=== PATIENT | male | born 1980 | race Caucasian/White ===

== ENCOUNTER 2018-07-19 07:55 | Emergency (ER) | payer BC ==
[2018-07-19] MEDS ORDERED: NORMAL SALINE 1000 ML 1,000 ML IV ONE (09:12)
[2018-07-19 09:58] LABS: ABSOLUTE EOSINOPHILS # (AUTO) 0.1 10^3/uL (0.0-0.6); ABSOLUTE LYMPHOCYTES (AUTO) 0.9 10^3/uL (0.5-4.7); ABSOLUTE MONOCYTES (AUTO) 0.5 10^3/uL (0.1-1.4); ABSOLUTE NEUT (AUTO) 4.9 10^3/uL (1.7-8.2); BASOPHILS % (AUTO) 0.6 % (0-2); EOSINOPHILS % (AUTO) 0.9 % (0-6); HEMATOCRIT 37.8 % (37.9-51.0); HEMOGLOBIN 12.1 g/dL (13.5-17.0); LYMPHOCYTES % (AUTO) 14.1 % (13-45); MEAN CORPUSCULAR HEMOGLOBIN 20.4 pg (27.0-33.4); MONOCYTES % (AUTO) 7.5 % (3-13); PLATELET COUNT 276 10^3/uL (150-450); RED BLOOD COUNT 5.91 10^6/uL (4.35-5.55); RED CELL DISTRIBUTION WIDTH 16.6 % (11.5-14.0); SEGMENTED NEUTROPHILS % (AUTO) 76.9 % (42-78); TOTAL CELLS COUNTED % (AUTO) 100 %; WHITE BLOOD COUNT 6.4 10^3/uL (4.0-10.5)
[2018-07-19 10:20] LABS: ALANINE AMINOTRANSFERASE 68 U/L (21-72); ALBUMIN 4.4 g/dL (3.5-5.0); ALKALINE PHOSPHATASE 67 U/L (38-126); ANION GAP 10 (5-19); ASPARTATE AMINO TRANSFERASE 32 U/L (17-59); BILIRUBIN,DIRECT 0.2 mg/dL (0.0-0.4); BILIRUBIN,TOTAL 0.7 mg/dL (0.2-1.3); BLOOD UREA NITROGEN 16 mg/dL (7-20); CALCIUM 9.9 mg/dL (8.4-10.2); CARBON DIOXIDE 27 mmol/L (22-30); CHLORIDE 105 mmol/L (98-107); GLUCOSE 88 mg/dL (75-110); POTASSIUM 4.1 mmol/L (3.6-5.0); SODIUM 142.4 mmol/L (137-145); TOTAL PROTEIN 7.1 g/dL (6.3-8.2)
[2018-07-19 10:48] LABS: ANISOCYTOSIS 1+; TARGET CELLS SLIGHT
[2018-07-19 10:49] LABS: MEAN CORPUSCULAR VOLUME 64 fl (80-97); PLATELET COMMENT ADEQUATE
--- NOTE | 2018-07-19 12:12 | RADIOLOGY REPORT (SQ) ---
EXAM DESCRIPTION: CT ABD/PELVIS WITH IV ORAL COMPLETED DATE/TIME: 07/19/2018 11:58 am REASON FOR STUDY: Discolored umbical hernia/ reduced COMPARISON: None. TECHNIQUE: CT scan of the abdomen and pelvis performed using helical scanning technique with dynamic intravenous contrast injection. Oral contrast. Images reviewed with lung, soft tissue, and bone win dows. Reconstructed coronal and sagittal MPR images reviewed. Delayed images for evaluation of the ur inary system also acquired. All images stored on PACS. All CT scanners at this facility use dose modulation, iterative reconstruction, and/or weight based d osing when appropriate to reduce radiation dose to as low as reasonably achievable (ALARA). [facility]: Dose Right [facility]: CareDose [facility]: Dose Right [facility]: Teradose 4D [facility]: Existence Before Essence CONTRAST TYPE AND DOSE: contrast/concentration: Isovue 350.00 mg/ml; Total Contrast Delivered: 99.0 ml; Total Saline Delivered: 70.0 ml RENAL FUNCTION: BUN 16 creatinine 0.93 RADIATION DOSE: CT Rad equipment meets quality standard of care and radiation dose reduction techniq ues were employed. CTDIvol: 18.2 - 20.0 mGy. DLP: 2139 mGy-cm.. LIMITATIONS: None. FINDINGS: LOWER CHEST: No significant findings. No nodules or infiltrates. LIVER: Normal size. No masses. No dilated ducts. SPLEEN: Normal size. No focal lesions. PANCREAS: No masses. No significant calcifications. No adjacent inflammation or peripancreatic fluid collections. Pancreatic duct not dilated. GALLBLADDER: No identified stones by CT criteria. No inflammatory changes to suggest cholecystitis. ADRENAL GLANDS: No significant masses or asymmetry. RIGHT KIDNEY AND URETER: No solid masses. No significant calcifications. No hydronephrosis or hyd roureter. LEFT KIDNEY AND URETER: No solid masses. No significant calcifications. No hydronephrosis or hydr oureter. AORTA AND VESSELS: No aneurysm. No dissection. Renal arteries, SMA, celiac without stenosis. RETROPERITONEUM: No retroperitoneal adenopathy, hemorrhage or masses. BOWEL AND PERITONEAL CAVITY: No masses or inflammatory changes. No free fluid or peritoneal masses. APPENDIX: Normal. PELVIS: No mass. No free fluid. Normal bladder. ABDOMINAL WALL: A small umbilical hernia contains only fat. BONES: No significant or acute findings. OTHER: No other significant finding. IMPRESSION: Small umbilical hernia contains only fat. No acute finding in the abdomen or pelvis. TECHNICAL DOCUMENTATION: JOB ID: [id number] Quality ID # [id number]: Final reports with documentation of one or more dose reduction techniques (e.g., Au tomated exposure control, adjustment of the mA and/or kV according to patient size, use of iterative reconstruction technique) 2010 [employer]- All Rights Reserved Reading location - IP/workstation name: [email or web address]
--- NOTE | 2018-07-19 12:43 | ER Document Report ---
ED GI/ - General Chief Complaint: Abdominal Pain Stated Complaint: ABDOMINAL PAIN Time Seen by Provider: 07/19/18 08:27 Primary Care Provider: BENITO ORTEGA PA [Primary Care Provider] - Follow up as needed SILVIA LAGUNAS MD [ACTIVE STAFF] - Follow up as needed Mode of Arrival: Ambulatory Information source: Patient Notes: patient is a 37-year-old male comes emergency room complaining of umbilical hernia discomfort. Patient states is been there for the last several months and he has been attempting to get into see a surgeon but has not gotten or found the time to do so yet. He states he woke up this morning and it felt a little more than unusual to him so he decided to come into the emergency room to have it checked out. He denies any nausea vomiting or diarrhea. He states that the pain is just a little uncomfortable more so than usual. He also states that it normally goes back and on his own but today does not seem like it is going all the way in. Patient denies any nausea vomiting or diarrhea. He denies any fevers. TRAVEL OUTSIDE OF THE [place] IN LAST 30 DAYS: No - HPI Patient complains to provider of: Abdominal pain Onset: This morning Timing/Duration: Gradual Quality of pain: Achy Severity at maximum: Moderate Severity in ED: Mild Pain Level: 2 Location: Other - Umbilical Sexual history: Inactive Associated symptoms: None Exacerbated by: Sitting, Standing Relieved by: Supine Similar symptoms previously: Yes Recently seen / treated by doctor: No - Related Data Allergies/Adverse Reactions: No Known Allergies Allergy (Verified 07/19/18 07:56) Past Medical History - General Information source: Patient - Social History Smoking Status: Never Smoker Cigarette use (# per day): No Chew tobacco use (# tins/day): No Smoking Education Provided: No Frequency of alcohol use: None Family History: Reviewed & Not Pertinent Patient has suicidal ideation: No Patient has homicidal ideation: No - Past Medical History Cardiac Medical History: Reports: Hx Hypertension Renal/ Medical History: Denies: Hx Peritoneal Dialysis Review of Systems - Review of Systems Constitutional: No symptoms reported EENT: No symptoms reported Cardiovascular: No symptoms reported Respiratory: No symptoms reported Gastrointestinal: See HPI, Other - Umbilical discomfort Genitourinary: No symptoms reported Male Genitourinary: No symptoms reported Musculoskeletal: No symptoms reported Skin: No symptoms reported Hematologic/Lymphatic: No symptoms reported Neurological/Psychological: No symptoms reported -: Yes All other systems reviewed and negative Physical Exam - Vital signs Vitals: Temp Pulse Resp BP Pulse Ox 98.1 F 95 18 160/78 H 99 07/19/18 07:59 07/19/18 07:59 07/19/18 07:59 07/19/18 07:59 07/19/18 07:59 Interpretation: Hypertensive - Notes Notes: PHYSICAL EXAMINATION: GENERAL: Patient is a well-nourished well-developed obese 37-year-old male who is in no apparent distress on physical exam today. HEAD: Atraumatic, normocephalic. EYES: Pupils equal round and reactive to light, extraocular movements intact, sclera anicteric, conjunctiva are normal. ENT: Nares patent, oropharynx clear without exudates. Moist mucous membranes. NECK: Normal range of motion, supple without lymphadenopathy LUNGS: Breath sounds clear to auscultation bilaterally and equal. No wheezes rales or rhonchi. HEART: Regular rate and rhythm without murmurs ABDOMEN: Soft, nontender, nondistended abdomen. No guarding, no rebound. Examination patient's area of concern is his umbilicus. Visualization of the umbilicus shows it to be a slightly discolored apparent umbilical hernia. Patient is feeling circumferentially around the umbilicus. He has bowel sounds in the abdominal area in all 4 quads. Discoloration is just a merlin or dusky type of a presentation bowel sounds are heard over the umbilicus. Palpation of the area shows her to be a small defect with pressure applied knees bent reduces itself. Color turns back to his normal with it being reduced. Some mild tenderness while attempted to reduce it. Musculoskeletal: Normal range of motion, no pitting or edema. No cyanosis. NEUROLOGICAL: Normal speech, normal gait. Normal sensory, motor exams PSYCH: Normal mood, normal affect. SKIN: See abdomen above for specific area other than that no abnormal lesions Course - Re-evaluation Re-evalutation: 07/20/18 09:27 Given that I could reduce the herniation normal color returned I did have also come in and examined patient. He agreed with assessment that it had been reduced however requested that we go ahead and do a work-up to make sure there was no necrosis in the area or inflammatory bowel presentation. We did do a CT that showed just a fat-containing hernia and with total reduction normal labs patient can be discharged home to follow-up with general surgery for hernia repair. Patient's been given specific instructions that if it should come out and not go back he needs to come back to the emergency room. He originally stated he wanted to go to a surgeon in [place] however since being here he asked for a list of surgeons locally. He is discharged home and will return if he has any concerns or problems. - Vital Signs Vital signs: Temp Pulse Resp BP Pulse Ox 98 F 69 16 119/58 L 98 07/19/18 13:35 07/19/18 13:35 07/19/18 13:35 07/19/18 13:35 07/19/18 13:35 - Laboratory Result Diagrams: 07/19/18 09:43 07/19/18 09:43 Laboratory results interpreted by me: 07/19/18 09:43 RBC 5.91 H Hgb 12.1 L Hct 37.8 L MCV 64 L MCH 20.4 L RDW 16.6 H Discharge - Discharge Clinical Impression: Umbilical hernia without obstruction or gangrene Condition: Stable Disposition: HOME, SELF-CARE Instructions: Abdominal Pain ([facility]), Umbilical Hernia ([facility]) Additional Instructions: Home and rest today. Monitor your hernia as we discussed if it starts to pop out lay down pushed back in. Should it come out and stay out you need to return to ER wants to get it rechecked. If you notice any substantial discoloration y ou also need to return to have it checked. I gave you the name of the surgeon in the area that she requested he may contact his office to see if he can accommodate you. Forms: Elevated Blood Pressure, Return to Work Referrals: BENITO ORTEGA PA [Primary Care Provider] - Follow up as needed SILVIA LAGUNAS MD [ACTIVE STAFF] - Follow up as needed
[2018-07-19 13:36] VITALS: BP 119/58
[2018-07-20 11:39] LABS: PATH REVIEW PATHOLOGIST REVIEWED
== END 2018-07-19 13:36 | disposition home or self-care (01) ==
LOC: ER 07:55
DX: K42.9 Umbilical hernia without obstruction or gangrene (principal); R10.33 Periumbilical pain; I10 Essential (primary) hypertension
CPT/HCPCS: 99284; 36415; 85025; 80053; 74177; J7030

== ENCOUNTER → 2018-07-30 | Outpatient (CLI) | payer BC ==
[2018-07-30 12:01] LABS: HEMATOCRIT 42.1 % (37.9-51.0); HEMOGLOBIN 13.6 g/dL (13.5-17.0); MEAN CORPUSCULAR HEMOGLOBIN 20.4 pg (27.0-33.4); MEAN CORPUSCULAR HGB CONC 32.3 g/dL (32.0-36.0); PLATELET COUNT 320 10^3/uL (150-450); RED BLOOD COUNT 6.66 10^6/uL (4.35-5.55); RED CELL DISTRIBUTION WIDTH 16.5 % (11.5-14.0); WHITE BLOOD COUNT 8.8 10^3/uL (4.0-10.5)
[2018-07-30 12:27] LABS: MEAN CORPUSCULAR VOLUME 63 fl (80-97)
[2018-07-30 12:34] LABS: ANION GAP 13 (5-19); BLOOD UREA NITROGEN 18 mg/dL (7-20); CALCIUM 10.2 mg/dL (8.4-10.2); CARBON DIOXIDE 28 mmol/L (22-30); CHLORIDE 101 mmol/L (98-107); GLUCOSE 86 mg/dL (75-110); POTASSIUM 4.1 mmol/L (3.6-5.0); SODIUM 142.1 mmol/L (137-145)
[2018-07-31 15:57] LABS: PATH REVIEW PATHOLOGIST REVIEWED
== END ==
LOC: OD 10:48
PROVIDERS: ATTEND Surgery
DX: Z01.818 Encounter for other preprocedural examination (principal); K42.9 Umbilical hernia without obstruction or gangrene; I10 Essential (primary) hypertension; J45.909 Unspecified asthma, uncomplicated
CPT/HCPCS: 36415; 80048; 85027

== ENCOUNTER 2018-08-24 05:22 | Day surgery (SDC) | payer BC ==
[2018-08-20 10:31] LABS: HEMATOCRIT 38.9 % (37.9-51.0); HEMOGLOBIN 12.5 g/dL (13.5-17.0); MEAN CORPUSCULAR HEMOGLOBIN 20.2 pg (27.0-33.4); MEAN CORPUSCULAR VOLUME 63 fl (80-97); PLATELET COUNT 305 10^3/uL (150-450); RED BLOOD COUNT 6.17 10^6/uL (4.35-5.55); RED CELL DISTRIBUTION WIDTH 15.6 % (11.5-14.0); WHITE BLOOD COUNT 11.7 10^3/uL (4.0-10.5)
[2018-08-20 11:01] LABS: ANION GAP 9 (5-19); BLOOD UREA NITROGEN 15 mg/dL (7-20); CALCIUM 9.5 mg/dL (8.4-10.2); CARBON DIOXIDE 26 mmol/L (22-30); CHLORIDE 104 mmol/L (98-107); GLUCOSE 75 mg/dL (75-110); POTASSIUM 4.6 mmol/L (3.6-5.0); SODIUM 139.1 mmol/L (137-145)
--- NOTE | 2018-08-20 11:23 | RADIOLOGY REPORT (SQ) ---
EXAM DESCRIPTION: CHEST PA/LATERAL COMPLETED DATE/TIME: 08/20/2018 10:03 am REASON FOR STUDY: PRE-OP COMPARISON: None. EXAM PARAMETERS: NUMBER OF VIEWS: two views TECHNIQUE: Digital Frontal and Lateral radiographic views of the chest acquired. RADIATION DOSE: NA LIMITATIONS: none FINDINGS: LUNGS AND PLEURA: No opacities, masses or pneumothorax. No pleural effusion. MEDIASTINUM AND HILAR STRUCTURES: No masses or contour abnormalities. HEART AND VASCULAR STRUCTURES: Heart normal size. No evidence for failure. BONES: No acute findings. HARDWARE: None in the chest. OTHER: No other significant finding. IMPRESSION: NO SIGNIFICANT RADIOGRAPHIC FINDING IN THE CHEST. TECHNICAL DOCUMENTATION: JOB ID: [id number] [email or web address]- All Rights Reserved Reading location - IP/workstation name: [email or web address]
--- NOTE | 2018-08-21 00:35 | EKG REPORT ---
SEVERITY:- NORMAL ECG - SINUS RHYTHM : Confirmed by: Claudette Torres 21-Aug-2018 00:34:06
[~2018-08-24 05:22] MED LIST: ACETAMINOPHEN 325 MG TABLET ONE; ACETAMINOPHEN 325 MG TABLET PO PRN; CEFAZOLIN 2 GM/D5W RTU 2 GM/50 ML RTUPB IV ONE; CEFAZOLIN 2 GM/D5W RTU 2 GM/50 ML RTUPB IV PRN; IBUPROFEN 800 MG in NORMAL SALINE 250 ML IV PRN; LACTATED RINGERS 1000 ML IV PRN; LIDOCAINE 0.5% INJ-PF (5 MG/ML) 50 ML SDV SUBCUT PRN; PREGABALIN 50 MG CAPSULE ONE; PREGABALIN 50 MG CAPSULE PO PRN
[2018-08-24] MEDS ORDERED: HYDROMORPHONE HCL INJ/PF 2 MG/ML AMPULE ONE (06:58)
[2018-08-24] MEDS ORDERED: FENTANYL CITRATE INJ/PF 100 MCG/2 ML AMPUL ONE (06:58)
[2018-08-24] MEDS ORDERED: MIDAZOLAM 2 MG/2 ML INJ ONE (06:58)
[2018-08-24] MEDS ORDERED: EPHEDRINE SULFATE INJ 50 MG/1 ML AMPULE ONE (06:58)
[2018-08-24] MEDS ORDERED: PROPOFOL INJ 200 MG/20 ML VIAL IV ONE (06:58)
[2018-08-24] MEDS ORDERED: BUPIVACAINE HCL 0.25 % INJ/PF (2.5 MG/1 ML) 30 ML VIAL ONE (07:12)
[2018-08-24] MEDS ORDERED: DIPHENHYDRAMINE HCL 50 MG/ML VIAL IV PRN (08:29)
[2018-08-24] MEDS ORDERED: PROMETHAZINE HCL INJ 25 MG/1 ML VIAL IV PRN ×2 (08:29)
[2018-08-24] MEDS ORDERED: ONDANSETRON HCL INJ/PF 4 MG/2 ML SDV IV PRN (08:29)
[2018-08-24] MEDS ORDERED: MEPERIDINE HCL/PF INJ 25 MG/1 ML DISP.SYRIN IV PRN (08:29)
[2018-08-24] MEDS ORDERED: OXYCODONE-ACETAMINOPHEN 5-325 MG TABLET PO PRN ×2 (08:29)
[2018-08-24] MEDS ORDERED: FENTANYL CITRATE INJ/PF 100 MCG/2 ML AMPUL IV PRN ×3 (08:29)
[2018-08-24] MEDS ORDERED: ONDANSETRON HCL INJ/PF 4 MG/2 ML SDV ONE ×2 (09:47→14:52)
[2018-08-24] MEDS ORDERED: HYDROCODONE/ACETAMINOPHEN 10-325 MG TABLET PO PRN (09:50)
[2018-08-24] MEDS ORDERED: PROMETHAZINE HCL INJ 25 MG/1 ML VIAL ONE (10:04)
[2018-08-24] MEDS ORDERED: HYDROCODONE/ACETAMINOPHEN 10-325 MG TABLET ONE (10:54)
[2018-08-24 12:27] VITALS: BP 136/72
--- NOTE | 2018-08-24 13:59 | EKG REPORT ---
SEVERITY:- NORMAL ECG - SINUS RHYTHM : Confirmed by: Claudette Torres 24-Aug-2018 13:59:06
[2018-08-24] MEDS ORDERED: IBUPROFEN 800 MG TABLET PO SCH (14:00)
[2018-08-24] MEDS ORDERED: KETOROLAC TROMETHAMINE 60 MG/2 ML SDV ONE (14:52)
[2018-08-24] MEDS ORDERED: VECURONIUM BROMIDE INJ 10 MG VIAL IV ONE (14:52)
[2018-08-24] MEDS ORDERED: GLYCOPYRROLATE 1 MG/5 ML VIAL ONE (14:52)
[2018-08-24] MEDS ORDERED: NEOSTIGMINE METHYLSULFATE 10 MG/10 ML VIAL ONE (14:52)
[2018-08-24] MEDS ORDERED: ROCURONIUM BROMIDE INJ 50 MG/5 ML VIAL IV ONE (14:52)
[2018-08-24] MEDS ORDERED: LIDOCAINE 2% INJ-PF (20 MG/ML) 2 ML AMPUL ONE (14:52)
[2018-08-24] MEDS ORDERED: DEXAMETHASONE SOD PHOSPHATE INJ 4 MG/1 ML VIAL ONE (14:52)
[2018-08-24] MEDS ORDERED: METOCLOPRAMIDE HCL INJ/PF 10 MG/2 ML SDV ONE (14:52)
--- NOTE | 2018-08-27 07:51 | Discharge Summary ---
Discharge Summary (SDC) - Discharge Final Diagnosis: Symptomatic umbilical hernia Date of Surgery: 08/24/18 Discharge Date: 08/24/18 Condition: Stable Forms: ASU Anesthesia D/C Instruction, Discharge POC-Surgical Service Treatment or Instructions: Discharge home. Diet as tolerated. Activity: No lifting greater than 10 pounds x 6 weeks. Follow-up with me in 7 to 10 days. [place] 10/325 mg p.o. every 6 hours as needed for pain. Ibuprofen 800 mg p.o. 3 times daily with meals. Okay to shower in 48 hours. No tub baths or swimming pools x2 weeks. Referrals: SILVIA LAGUNAS MD [ACTIVE STAFF] - 09/03/18 10:45 am Discharge Diet: As Tolerated Respiratory Treatments at Home: Deep Breathing/Coughing, Incentive Spirometer Discharge Activity: No Lifting Over 10 Pounds, No Lifting/Push/Pulling, No tub bath Home Care Assistance: None Needed Report the Following to Your Physician Immediately: Shortness of Breath, Nausea, Vomiting, Increase in Pain, Fever over 101 Degrees, Unusual Bleeding
--- NOTE | 2018-08-27 07:57 | Operative Report ---
Nonrecallable Operative Report DATE OF SURGERY: 08/24/18 PREOPERATIVE DIAGNOSIS: Symptomatic umbilical hernia POSTOPERATIVE DIAGNOSIS: Same as above OPERATION: Robot-assisted laparoscopic umbilical hernia repair with mesh SURGEON: SILVIA LAGUNAS 1ST COLLECT ON DELIVERY CLERK: LEAH ENNIS ANESTHESIA: GA TISSUE REMOVED OR ALTERED: None COMPLICATIONS: None apparent ESTIMATED BLOOD LOSS: Minimal PROCEDURE: Drains/implants: 10 x [address] hernia mesh. Procedure in detail: After informed consent was obtained, the patient was brought into the operating room and laid in the supine position. The area of the abdomen was prepped and draped in a normal sterile fashion. An incision was created in the left upper quadrant using a 15 blade scalpel. The 5 mm camera and 5 mm trocar were inserted into the abdominal cavity under direct laparoscopic visualization using the Optiview technique. Gas insufflation was attached, and pneumoperitoneum was achieved. Next, an 8 mm left lower quadrant trocar was placed under direct laparoscopic visualization, as was a 12 mm left lateral abdominal trocar. The 5 mm trocar was removed and replaced with an 8 mm robotic trocar. This was also done under direct laparoscopic visualization. Next, the robot was brought over the patient and docked appropriately. I then assumed my position at the surgeon's console. Attention was turned to cleaning of the fat away from the hernia defect. There was preperitoneal fat incarcerated within the hernia defect. This was freed. The periumbilical preperitoneal fat was also freed from the anterior abdominal wall. Once this was completed, a #1 V Lock Suture was used to close the hernia defect. After this was completed, a 10 x 15 cm hernia mesh was felt to be adequate to cover the defect. It was placed into the abdominal cavity and apposed to the anterior abdominal wall. The mesh was sutured to the anterior abdominal wall using 2-0 V Lock Suture in simple running fashion. Once this was completed, the mesh was found to lie in good place. The 8 mm trocar sites were then closed using 0 Vicryl suture in simple interrupted fashion with the aid of the Jc-Benjamin device. The 12 mm trocar site was closed using 0 Vicryl suture in [id number] fashion, with the aid of the Jc-Benjamin device. The overlying skin was closed using 4-0 Vicryl Rapide suture in subcuticular fashion. Dressings were placed, and the procedure was concluded. All sponge, instrument, and needle counts were correct x2. Condition: Stable. Leah Ennis PA-C was scrubbed and present the entirety the procedure. She assisted with all portions of the procedure including placement of the trochars, manipulation of the robotic arms, exchanging of the robotic instruments, closure of the port sites, and closure of the skin.
== END 2018-08-24 11:45 | disposition home or self-care (01) ==
LOC: OROUT 05:22
PROVIDERS: ATTEND Surgery
DX: K42.9 Umbilical hernia without obstruction or gangrene (principal); I10 Essential (primary) hypertension; J45.909 Unspecified asthma, uncomplicated; Z87.891 Personal history of nicotine dependence; Z79.899 Other long term (current) drug therapy; Z79.51 Long term (current) use of inhaled steroids
CPT/HCPCS: 49652; S2900; 36415; 71046; 750; 80048; 82962; 84132; 85027; 86850; 86900; 86901; 93005; 93010; C1781; J0690; J1100; J1170; J1741; J1885; J2250; J2405; J2550; J2704; J2710; J2765; J3010; J3490; J7050